=== PATIENT | male | born 1975 | race Asian ===

== ENCOUNTER 2022-06-20 09:23 | Day surgery (SDC) | payer OTHER ==
[~2022-06-20] VITALS: Ht 175.3 cm; Wt 80.3 kg
[2022-06-20] MEDS ORDERED: MIDAZOLAM 2 MG/2 ML VIAL ONE (09:51)
[2022-06-20] MEDS ORDERED: fentaNYL citrate 0.05 MG/ML VIAL ONE (09:51)
[2022-06-20] MEDS ORDERED: LIDOCAINE 2% 100 MG/5 ML UJET TP ONE (09:51)
[2022-06-20] MEDS ORDERED: diphenhydrAMINE 50 MG/ML VIAL ONE (09:51)
[2022-06-20] MEDS ORDERED: fentaNYL citrate 0.05 MG/ML VIAL IVP ONE (10:40)
[2022-06-20] MEDS ORDERED: MIDAZOLAM 2 MG/2 ML VIAL IVP ONE (10:40)
== END 2022-06-20 11:15 | disposition home or self-care (01) ==
LOC: MDS 09:23 → MMU 09:23 → MDS 11:15
PROVIDERS: ATTEND Internal Medicine Gastroenterology
DX: Z12.11 Encounter for screening for malignant neoplasm of colon (principal); K63.5 Polyp of colon; K29.50 Unspecified chronic gastritis without bleeding; B96.81 Helicobacter pylori [H. pylori] as the cause of diseases classified elsewhere; K21.9 Gastro-esophageal reflux disease without esophagitis; I10 Essential (primary) hypertension; E11.9 Type 2 diabetes mellitus without complications; E78.5 Hyperlipidemia, unspecified; Z80.0 Family history of malignant neoplasm of digestive organs; Z79.84 Long term (current) use of oral hypoglycemic drugs; Z79.899 Other long term (current) drug therapy; Z20.822 Contact with and (suspected) exposure to COVID-19
CPT/HCPCS: 43239; 45385; 87426; J2250; J3010; J1200